=== PATIENT | female | born 1995 | race Caucasian/White ===

== ENCOUNTER 2023-06-03 05:14 | Emergency (ER) | payer OTHER, SELFPAY ==
--- NOTE | ~2023-06-03 | US_ITS ---
US abdomen limited INDICATION: Right upper quadrant pain. History of gallstones. PROCEDURE: Realtime right upper abdominal ultrasound. COMPARISON: No prior studies for comparison. FINDINGS: The pancreas is normal without focal mass or pancreatic ductal dilation. Liver echotexture is normal without focal mass or intrahepatic biliary dilatation. There is normal directional flow i n the portal vein. There are gallstones. Mild gallbladder wall thickening. Common bile duct measures 4.8 mm. No sonogr aphic Bourgeois's sign. IMPRESSION: 1: Cholelithiasis with mild gallbladder wall thickening. Consider cholecystitis in the appropriate cl inical setting. Reviewed, dictated and finalized at location L. IMPRESSION: 1: Cholelithiasis with mild gallbladder wall thickening. Consider cholecystitis in the appropriate clinical setting.
[2023-06-03 05:15] VITALS: BP 130/89; PULSE 85; RESP 16; TEMP 36.4; O2SAT 100
[2023-06-03 06:15] LABS: Basophils Absolute Auto 0.1 K/mm3 (0.0-0.1); Basophils Percent Auto 0.6 % (0.2-1.2); Eosinophils Absolute Auto 0.1 K/mm3 (0-0.3); Eosinophils Percent Auto 0.7 % (0-4.4); Hematocrit 44.9 % (37.0-47.0); Hemoglobin 14.2 g/dL (12.0-15.0); Immature Granulocyte Absolute 0.04 K/mm3 (0.00-0.031); Immature Granulocyte Percent A 0.4 % (0-0.5); Lymphocytes Absolute Auto 2.06 K/mm3 (0.9-3.2); Lymphocytes Percent Auto 19.9 % (18.3-44.2); Mean Corpuscular HGB Conc 31.6 g/dl (32-36); Mean Corpuscular Hemoglobin 26.7 pg (26-34); Mean Corpuscular Volume 84.6 fl (80-100); Mean Platelet Volume 11.7 fl (7.4-10.4); Monocytes Absolute Auto 0.6 K/mm3 (0.1-0.6); Monocytes Percent Auto 6.2 % (2.6-8.5); Neutrophils Absolute Auto 7.5 K/mm3 (1.3-6.7); Neutrophils Percent Auto 72.2 % (45.5-73.1); Platelet Count Result 410 k/mm3 (150-375); Red Blood Count 5.31 M/mm3 (4.2-5.4); Red Cell Distribution Width 14.5 % (11.5-14.5); White Blood Count 10.3 K/mm3 (4.5-10.0)
[2023-06-03 06:17] VITALS: BP 119/74; O2SAT 100
[2023-06-03 06:18] VITALS: PULSE 65; RESP 18; O2SAT 100
[2023-06-03 06:18] LABS: Appearance Urine Turbid (Clear); Bacteria Urine 4+ /hpf; Bilirubin Urine Negative (Negative); Blood Urine 1+ (Negative); Color Urine Yellow (Yellow); Glucose Urine UA Negative (Negative); Ketones Urine Negative (Negative); Leukocyte Esterase Ur Negative LEU/UL (Negative); Nitrate Urine Positive (Negative); Non Pathogenic Casts 0-2; Protein Urine Negative (Negative); Specific Grav Ur 1.023 (1.001-1.035); Squamous Epithelial Cell Urine None seen /hpf (Few); Urobilinogen Urine 0.2 mg/dL (<2.0); WBC Urine 0-5 /hpf
[2023-06-03 06:41] LABS: Add Urine Microscopic? YES
--- NOTE | 2023-06-03 07:04 | ED.ABDPAIN ---
HPI - Abdominal Pain General Chief Complaint: Abdominal Pain Stated Complaint: URQ abd pain, N/V Time Seen by Provider: 06/03/23 06:56 History of Present Illness HPI narrative: Pt with h/o gallstones seen incidentally on prior US p/w n/v and RUQ since last night; she had had homemade pizza at 5pm and pain started around 7p w/ lowgrade chills. Related Data Home Medications Medication Instructions Recorded Confirmed No Home Medications 07/01/19 07/01/19 Allergies Allergy/AdvReac Type Severity Reaction Status Date / Time No Known Allergies Allergy Unknown Unverified 06/03/23 12:20 Review of Systems Review of Systems: CONST: Low-grade fevers/chills HEENT: No sore throat C/V: No chest pain RESP: No cough GI: Reports abdominal pain, nausea, vomiting : No dysuria. M/S: No joint pain. SKIN: No rash. NEURO: [No headache or focal numbness or weakness] PSYCH: [No depression] [facility] Past Medical History Medical History (Updated 06/03/23 @ 12:20 by Katelyn Bowen) Anxiety Social History Social History (System 06/03/23 @ 12:20 by Katelyn Bowen) Smoking status: Never smoker Gender identity (if verbalized by the patient): Female Exam Narrative: EXAMINATION OF ORGAN SYSTEMS/BODY AREAS: Constitutional: Vital signs per nursing GENERAL:[No acute distress, non-toxic appearing.] HEAD: Normal with no signs of head trauma. EYES: EOMI, conjunctiva normal ENT: Hearing grossly intact LUNGS: Nonlabored breathing. HEART: [Regular rate and rhythm] ABD: [Soft], [tender to palpation] RUQ; no RLQ tenderness EXT: Normal range of motion SKIN: [No rashes or lesions.] NEURO: [Alert and oriented x 3. No gross focal sensory or strength deficits.] PSYCH: Normal affect Course Vital Signs Vital signs: Vital Signs Temperature 97.6 F 06/03/23 05:15 Pulse Rate 85 06/03/23 05:15 Respiratory Rate 16 06/03/23 05:15 Blood Pressure 130/89 06/03/23 05:15 Pulse Oximetry 100 06/03/23 05:15 Oxygen Delivery Room Air 06/03/23 05:15 Temperature 97.6 F 06/03/23 05:15 Pulse Rate 62 06/03/23 09:33 Respiratory Rate 16 06/03/23 09:33 Blood Pressure 122/72 06/03/23 09:33 Pulse Oximetry 100 06/03/23 09:33 Oxygen Delivery Room Air 06/03/23 05:15 MDM - Abdominal Pain MDM Narrative Medical decision making narrative: Electronic medical record was reviewed. Patient presented to the ED with complaint of [abdominal pain and vomiting]. Vitals [were within acceptable limits]. Physical exam revealed [tenderness to palpation in RUQ]. Based on the patient's history and physical exam, my differential includes but is not limited to [gastritis, gastroenteritis, cholecystitis, pancreatitis, doubt appendicitis w/o RLQ pain]. [IV access was established by nursing staff. Patient was given zofran, famotidine, morphine]. CBC, BMP, lipase, LFTs, bilirubin and alk phos were obtained. Labs were pertinent for minimally elevated WBC, normal LFTs, bili. Right quadrant ultrasound showing cholelithiasis, with possible thickened wall, no definitive cholecystitis. On reevaluation, the patient states that they are feeling much better. There were no witnessed episodes of vomiting in the emergency department. They are not complaining of any new abdominal pain. Repeat examination did not show any significant guarding or rebound. No new tenderness. Case discussed with Dr. Johnston, general surgeon on-call, who recommended starting her on ciprofloxacin and seeing him in the clinic in the next 2 days. Plan discussed with the patient was agreeable to it. The patient was given strict return precautions, if they are to develop any worsening abdominal pain, vomiting, fevers, they are to return to the emergency department immediately. Patient verbally acknowledges understanding these directions. [The patient was informed of the above diagnostic test findings.] No further workup is necessary at this time. They will be discharged home [wi
[2023-06-03 07:07] LABS: Alanine Aminotransferase 29 U/L (6-35); Albumin Level 4.2 g/dL (3.5-5.1); Alkaline Phosphatase 65 U/L (38-126); Anion Gap 7 mmol/L (8-16); Aspartate Amino Transferase 27 U/L (14-36); Bilirubin,Total 0.4 mg/dL (0.2-1.3); Blood Urea Nitrogen 13 mg/dL (7-17); Calcium 9.3 mg/dL (8.4-10.2); Carbon Dioxide 24 mmol/L (22-30); Chloride 105 mmol/L (98-107); Estimated CRCL calculation 99 ml/min; Estimated Glomerular Filt Rate > 60; Glucose 105 mg/dL (65-110); Lipase 203 U/L (23-300); Potassium 3.6 mmol/L (3.4-5.0); Sodium 136 mmol/L (137-145)
[2023-06-03] MEDS: ONDANSETRON INJ 4 MG/2 ML VIAL IV PUSH (07:07)
[2023-06-03] MEDS: FAMOTIDINE 20 MG/2 ML VIAL IV PUSH (07:07)
[2023-06-03] MEDS: MORPHINE SULFATE (*CRX) 4 MG/ML INJ IV PUSH (07:07)
[2023-06-03 08:01] VITALS: BP 117/79; PULSE 74; RESP 16; O2SAT 100
[2023-06-03] MEDS: CIPROFLOXACIN 500 MG TAB PO (09:31)
[2023-06-03 09:33] VITALS: BP 122/72; PULSE 62; RESP 16; O2SAT 100
== END 2023-06-03 09:38 | disposition home or self-care (01) ==
PROVIDERS: Student in an Organized Health Care Education/Training Program; Emergency Provider Emergency Medicine
DX: K80.20 Calculus of gallbladder without cholecystitis without obstruction (principal)
CPT/HCPCS: 36415; 76705; 80053; 81001; 81025; 83690; 85025; 96374; 96375; 99284; A9270; J2270; J2405

== ENCOUNTER 2023-06-09 08:04 | Outpatient (CLI) | payer OTHER, SELFPAY ==
--- NOTE | 2023-06-09 08:00 | ECG_ITS ---
Measurements Intervals [place] Rate: 94 P: 82 [place]: 145 QRS: 68 QRSD: 90 T: 52 QT: 339 QTc: 424 Interpretive Statements SINUS RHYTHM POSSIBLE LEFT ATRIAL ENLARGEMENT BASELINE ARTIFACT- I, II, III, AVR, AVL, AVF, V1-V2 BORDERLINE ECG NO PREVIOUS ECG AVAILABLE FOR COMPARISON Electronically Signed On 06-09-2023 8:40:44 CDT by Geovani Madden D.O.
[2023-06-09 08:50] LABS: Alanine Aminotransferase 31 U/L (6-35); Albumin Level 4.5 g/dL (3.5-5.1); Alkaline Phosphatase 62 U/L (38-126); Amylase 62 U/L (30-110); Aspartate Amino Transferase 26 U/L (14-36); Bilirubin,Total 0.6 mg/dL (0.2-1.3); Lipase 63 U/L (23-300)
== END 2023-06-09 08:05 | disposition home or self-care (01) ==
LOC: ANHSURGERY 08:09
PROVIDERS: Visit Provider Surgery
DX: K80.10 Calculus of gallbladder with chronic cholecystitis without obstruction (principal); I10 Essential (primary) hypertension; Z01.818 Encounter for other preprocedural examination
CPT/HCPCS: 36415; 80076; 82150; 83690; 86850; 86900; 86901; 93005

== ENCOUNTER 2023-06-10 01:42 | Day surgery (SDC) | payer OTHER, SELFPAY ==
[2023-06-07 13:19] VITALS: BMI 22.9
--- NOTE | 2023-06-07 13:24 | PC.NURSE ---
Report to the Outpatient Waiting Room, entrance under the green pavilion located off [facility], at time 10:00 on date 06/10/23. Planned Procedure Time: 12:00. Time changes happen often and if your time is changed the preop area will call you the afternoon before. - You and your visitor will be asked to self-screen and do not enter if you have any COVID symptoms. - A mask is optional within the hospital at this time. Patients may have clear liquids (water, carbonated beverages, clear teas, apple juice) until 3 hours prior to surgery (9:00) with a maximum of 20 ounces. - No food from midnight until time of surgery Take the following medications with a SIP of water the morning of surgery: BUPROPION, CIPRO, CONTROL DO NOT STOP ANY OF YOUR OTHER PRESCRIPTION MEDICATIONS PRIOR TO SURGERY ?EXCEPT THE FOLLOWING Medications to discontinue per physician: N/A Date to take last dose: N/A Please no make-up, nail arabic, hairspray, perfume, deodorant, or body powder the day of surgery. No jewelry (including any body piercings) or valuables the day of surgery, leave them at home. Please take a shower or bath the night before, or the morning of, surgery with an antibacterial soap. Wear comfortable, loose fitting clothing. - Jewelry must be removed prior to entering the operating room. Rings and piercings that are not removed may be cut off. - The hospital will not accept responsibility for valuables. - Please leave all valuables, including medications, at home the day of surgery. If you are going home after surgery, a licensed rolloff truck driver must drive you home. - NO public transportation without another adult if you receive anesthesia. - We recommend that an adult stay with you for 24 hours following discharge. - We also recommend that you do not drive, make important decision, drink alcoholic beverages, or take any drugs that were not prescribed by your health care provider for at least 24 hours after your discharge time. Follow any additional instructions given to you from your surgeon. If you or anyone in your household have experienced Covid symptoms in the past week, please notify your surgeon or the nurse liaison at the phone number below for possible testing. Telephone instructions given to PT - DORENE Schaffer and asked if any additional questions and then verbalized understanding. Patient advised to call surgeon office or pre surgery nurse liaison [phone] if any additional questions.
[2023-06-10] VITALS (13 sets, daily range): BP systolic 114–140; BP diastolic 59–88; PULSE 81–99; RESP 15–19; TEMP 36.4–37.1; O2SAT 100
--- NOTE | ~2023-06-10 | XR_ITS ---
EXAMINATION: XR chest 1V portable 06/10/2023 15:36 INDICATION: Dyspnea PROCEDURE: AP portable chest COMPARISON: 11/24/2013 FINDINGS: The lungs are clear. The cardiomediastinal silhouette is within normal limits. There are no pleural effusions. There is no pneumothorax suspected. There is scoliosis. IMPRESSION: 1: NO ACUTE CARDIOPULMONARY DISEASE. Reviewed, dictated and finalized at location A.
[2023-06-10] MEDS: LACTATED RINGERS 1,000 ML 30 ML IV CONT ×2 (10:30→14:16)
[2023-06-10] MEDS: ACETAMINOPHEN 500 MG TABLET 1000 MG PO (11:45)
--- NOTE | 2023-06-10 11:49 | P.PNAN_ITS ---
Anes - Initial Pre Proc Eval Procedure: Operation Date: 06/10/23 12:00 Proposed Procedures p Laparoscopic Cholecystectomy - Nicholas Johnston MD Date/Time: 06/10/23 11:49 Surgeon: Nicholas Johnston MD Pre Op Diagnosis: Chr Cholecystitis with Stones Patient Data Age: 27 Gender: F Height: 1.78 m Weight: 72.6 kg Allergies Allergy/AdvReac Type Severity Reaction Status Date / Time No Known Allergies Allergy Unknown Verified 06/07/23 13:18 Home Medications Medication Instructions Recorded Confirmed Type ciprofloxacin HCl 500 mg tablet 500 mg PO Q12H #14 tabs 06/03/23 06/09/23 Rx famotidine 20 mg tablet 20 mg PO DAILY #30 tabs 06/03/23 06/09/23 Rx bupropion HCl 300 mg 24 hr tablet, 300 mg PO QAM 06/07/23 06/09/23 History extended release lisinopril 5 mg tablet 5 mg PO DAILY 06/07/23 06/09/23 History norethindrone 1 mg-ethinyl 1 tablet PO DAILY 06/07/23 06/09/23 History estradiol 10 mcg (24)-iron 10 mcg(2) tablet (Lo Loestrin Fe) Patient hx anesthesia problems: post op nausea/vomiting (scopolamine patch appli ed) Family hx anesthesia problems: none Results Review: All pre-operative results and documents have been reviewed as part of the pre-operative evaluation. [facility] Past Medical History Medical History (Updated 06/07/23 @ 11:55 by Sadia Lynch) Anxiety Depression Hypertension Kidney stone Surgical History Surgical History History of oophorectomy Social History Social History Smoking status: Never smoker Alcohol intake: current Alcohol use details: RARE Substance use: current Substance use type: marijuana Living arrangements: with family Gender identity (if verbalized by the patient): Female Spiritual care concerns: No Anes - Eval Final PreProcedure Day of Procedure 06/10/23 11:49 Patient weight: normal Heart: regular rate and rhythm Lungs: clear to auscultation Airway: Mallampati scale class II Neurological: alert and oriented Last oral intake: >/= 8 hours ASA classification: II Emergent: no Anesthetic plan: proceed Anesthesia type and monitoring: general ETT and standard monitoring Results Review: All pre-operative results and documents have been reviewed as part of the pre- operative evaluation. Informed Consent: The patient's anesthetic plan and its attendant risks and benefits were discussed with the patient/family/POA. Questions were solicited and answers provided to the satisfaction of the patient/family/POA.
[2023-06-10] MEDS: KETOROLAC 15 MG/ML VIAL (*BKC) IV PUSH ×2 (11:50→13:19)
[2023-06-10] MEDS: SCOPOLAMINE 1.5 MG PATCH TRANSDERM (11:50)
--- NOTE | 2023-06-10 11:58 | WPDHPUPDATE1 ---
History and Physical Update Update Date/Time: 06/10/23 11:58 History and Physical has been reviewed, including an updated exam of the patient. There are NO changes in the patient's condition. Risks, benefits, and alternatives have been discussed and questions answered. Patient agrees to proceed with procedure.
[2023-06-10] MEDS: ceFAZolin 2 GM/D5W 50 ML 2 GM/50 ML BAG IVPB (12:11)
[2023-06-10] MEDS: BUPIVACAINE/EPINEPHRINE 0.5% 50 ML VIAL INFILTRATE (12:45)
--- NOTE | 2023-06-10 13:32 | W.PM.PROC2 ---
Procedure Note - Detailed Date of Procedure 06/10/23 Pre-op Diagnosis Chr Cholecystitis with Stones Post-op Diagnosis Same Procedure Performed Laparoscopic cholecystectomy Surgeon Nicholas Johnston MD Iuss Analyst Kulwant BALDWIN Anesthesia General and Local Indications Patient is a 27-year-old woman who has had postprandial right upper quadrant abdominal pain that has been very severe. He usually comes after fatty foods and is accompanied by nausea and vomiting. She was recently in the emergency room for this. An ultrasound showed gallstones and a thickened gallbladder wall consistent with cholecystitis. She was seen in the office and is taken to surgery now for laparoscopic cholecystectomy. Her liver function tests were normal Findings She had a very long gallbladder that was packed with stones. Several of the stones had moved into the proximal cystic duct and 1 was impacted in the cystic duct. There was no liver abnormalities and no biliary dilatation. No other significant findings were noted. Description of Procedure Patient was taken to surgery and induced into general anesthesia. The abdomen is prepped and draped. Initial epigastric trocar was plan for the epigastric area. Local was infiltrated and an incision was made. The varies needle was introduced and insufflation of the abdomen was carried out. After adequate distention, a 5 mm applied Medical optical trocar was placed. This showed intraperitoneal location without any sign of injury. We then used this trocar and placed a right-sided 5 mm port in the lower portion of the abdomen. The camera was switched over to this port. We then exchanged the 5 mm epigastric port for a 10 11. Two additional 5 mm ports were placed, 1 was on the right side of the abdomen the other was just to the left of the umbilicus. Patient was then placed in Trendelenburg. The gallbladder was seen easily. It was completely full of stones. Fortunately it was not so distended with stones that we could not grasp it. The gallbladder was retracted anterosuperiorly. Gallbladder appeared very long. We elevated the infundibulum and dissected in the cholecystohepatic triangle. A couple of branches of the cystic artery were identified. One went around the cystic duct from left to right. For we dissected both of these branches and dissected it from the cystic duct. We then started dissecting under the gallbladder and dissected entirely through from the medial aspect through the lateral aspect of the peritoneal attachments on the undersurface of the gallbladder. It appeared that the infundibulum of the gallbladder extended more than was initially appreciated. We dissected from the proximal cystic duct down towards the common bile duct. Eventually we found the junction of the cystic duct and common hepatic duct. The right hepatic artery was seen as well. I then carefully dissected out the cystic duct and cystic artery in this position. I then further dissected the gallbladder off the liver so that at least half of the gallbladder was dissected away from the liver and critical view was achieved. The cystic duct had a large stone impacted in the proximal to mid cystic duct. The very distal cystic duct however was small in more of a normal size. I securely clipped and divided the cystic duct. I securely clipped and divided the cystic artery. We then went back in carefully divided the peritoneal attachments to the gallbladder and also dissected the gallbladder from the gallbladder fossa. Moving progressively more towards the fundus of the gallbladder eventually, the gallbladder was completely freed from the liver. Gallbladder was placed in an Endo-Catch bag and then retrieved from the 05/19 epigastric trocar site. I did have to enlarge the skin and some of the fascia to allow the gallbladder to be extricated from this epigastric trocar site as it was thickened and had many stones within it. Once this was accomplished, t
[2023-06-10] MEDS: fentaNYL CITRATE INJ (*CRX) 100 MCG/2 ML VIAL 25 MCG IV PUSH ×4 (13:57→14:22)
[2023-06-10] MEDS: oxyCODONE HCL (*CRX) 5 MG TAB IR PO (15:04)
[2023-06-10] MEDS: HYDROmorphone HCL INJ (*CRX) 1 MG/ML SYR IV PUSH (15:36)
[2023-06-10] MEDS: diazePAM INJ (*CRX) 10 MG/2 ML SYRINGE 2.5 MG IV PUSH (16:01)
--- NOTE | 2023-06-10 16:42 | SUR.PHASEII ---
1611: Spoke w/ Dr. Johnston and told him that the medication did not help any. Patient was still crying and having a lot of pain. Dr. Johnston will put in admission orders.
--- NOTE | 2023-06-10 17:41 | ADMGEN ---
This patient, Yue Vogt, was admitted to Medical Room 254-01. Patient/family oriented to hospital policies and general routines including ID bracelet, bed and alarms, visiting hours, pain management, procedures, bathroom and other care routines, personal items, smoking policy, room service/diet, and visiting hours. Information on how to activate the Rapid Response Team has been discussed. Patient/Family are encouraged to report perceived risks to care and to ask questions if they do not understand what they are told or what they should do.
[2023-06-10] MEDS: ONDANSETRON INJ 4 MG/2 ML VIAL IV PUSH ×2 (17:53→21:47)
[2023-06-10] MEDS: MORPHINE SULFATE (*CRX) 2 MG/ML INJ IV PUSH (17:53)
[2023-06-10] MEDS: LACTATED RINGERS 1,000 ML 80 ML IV CONT (17:54)
[2023-06-10] MEDS: HYDROcodone/acetaminophen (*CRX) 5-325 MG TABLET 1 TAB PO (21:46)
[2023-06-10] MEDS: ENOXAPARIN 30 MG/0.3 ML SYRINGE SUB-Q (21:47)
[2023-06-11 00:32] VITALS: BP 114/60; PULSE 82; RESP 16; TEMP 36.5; O2SAT 99
[2023-06-11 06:07] LABS: Hematocrit 35.6 % (37.0-47.0); Hemoglobin 11.6 g/dL (12.0-15.0); Mean Corpuscular HGB Conc 32.6 g/dl (32-36); Mean Corpuscular Hemoglobin 27.2 pg (26-34); Mean Corpuscular Volume 83.6 fl (80-100); Mean Platelet Volume 11.5 fl (7.4-10.4); Platelet Count Result 334 k/mm3 (150-375); Red Blood Count 4.26 M/mm3 (4.2-5.4); Red Cell Distribution Width 13.7 % (11.5-14.5)
[2023-06-11 06:24] LABS: Alanine Aminotransferase 65 U/L (6-35); Albumin Level 3.4 g/dL (3.5-5.1); Alkaline Phosphatase 53 U/L (38-126); Anion Gap 5 mmol/L (8-16); Aspartate Amino Transferase 63 U/L (14-36); Bilirubin,Total 0.6 mg/dL (0.2-1.3); Blood Urea Nitrogen 9 mg/dL (7-17); Calcium 8.3 mg/dL (8.4-10.2); Carbon Dioxide 24 mmol/L (22-30); Chloride 104 mmol/L (98-107); Estimated CRCL calculation 89 ml/min; Estimated Glomerular Filt Rate > 60; Glucose 95 mg/dL (65-110); Potassium 3.6 mmol/L (3.4-5.0); Sodium 133 mmol/L (137-145)
[2023-06-11] MEDS: LACTATED RINGERS 1,000 ML 80 ML IV CONT (06:36)
[2023-06-11 06:44] VITALS: BP 112/59; PULSE 98; RESP 16; TEMP 36.6; O2SAT 100
[2023-06-11 09:20] VITALS: BP 119/63
[2023-06-11] MEDS: lisinopriL 5 MG TABLET PO (09:21)
[2023-06-11] MEDS: buPROPion HCL XL (24 HR) 150 MG TABCR 300 MG PO (09:21)
[2023-06-11] MEDS: FAMOTIDINE 20 MG TABLET PO (09:21)
[2023-06-11] MEDS: ENOXAPARIN 30 MG/0.3 ML SYRINGE SUB-Q (09:21)
[2023-06-11] MEDS: HYDROcodone/acetaminophen (*CRX) 10-325 MG TABLET 1 TAB PO (09:22)
--- NOTE | 2023-06-11 10:03 | WPDANESPN ---
Anes - Prog Note Post-Op Date/Time: 06/11/23 10:03 Cardiovascular status: normal Respiratory status: normal Airway patency: baseline Mental status: baseline Post-Op hydration status: normal Vital Signs: Last Vital Signs Temp 36.6 C 06/11/23 06:44 Pulse 98 06/11/23 06:44 Resp 16 06/11/23 06:44 BP 119/63 06/11/23 09:20 Pulse Ox 100 06/11/23 06:44 O2 Del Method Room Air 06/10/23 20:00 O2 Flow Rate 6 06/10/23 13:45 Pain Score (VAS): 10/16 I/O: Intake & Output 06/10/23 06/11/23 06/11/23 23:59 07:59 15:59 Intake Total 0 1400 120 Balance 0 1400 120 Laboratory Tests 06/11/23 05:35 06/11/23 05:35 06/11/23 05:35 WBC 10.0 RBC 4.26 Hgb 11.6 L Hct 35.6 L MCV 83.6 MCH 27.2 MCHC 32.6 RDW 13.7 Plt Count 334 MPV 11.5 H Sodium 133 L Potassium 3.6 Chloride 104 Carbon Dioxide 24 Anion Gap 5 L BUN 9 Creatinine 0.90 Estim Creat Clear Calc 89 Estimated GFR > 60 Glucose 95 Calcium 8.3 L Total Bilirubin 0.6 AST 63 H ALT 65 H Alkaline Phosphatase 53 Total Protein 6.0 L Albumin 3.4 L Post-procedural complaints: none Patient Feedback: Patient satisfied with anesthetic care.
[2023-06-11 11:05] VITALS: BP 115/65; PULSE 56; RESP 14; TEMP 36.7; O2SAT 100
--- NOTE | 2023-06-11 11:39 | PM.DS ---
DS: Admitting Diagnosis Discharge Date 06/11/2023 Admitting Diagnosis Chronic cholecystitis, cholelithiasis DS: Discharge Diagnosis Discharge Diagnosis (1) Chronic cholecystitis with calculus: Code(s): K80.10 - Calculus of gallbladder with chronic cholecystitis without obstruction Status: Chronic Assessment and Plan: Status post laparoscopic cholecystectomy 06/10/[address] Johnston DS: Summary Hospital Course Hospital Course: Patient had uneventful laparoscopic cholecystectomy on 06/10/2023. She had quite a bit of right shoulder and right upper chest pain after surgery. She was also persistently tearful and uncomfortable. Despite numerous efforts to relieve this, she was still very uncomfortable and we felt it best to observe her overnight. Although she received some morphine last night, she has tolerated oral intake and took only 5 mg Percocet this morning. She feels much better. She is no longer having tearful emotions. She has been up walking. She is discharged today in much improved condition. Status at Discharge Functional status at discharge: independent ambulation Overall status at discharge: patient is progressing back to baseline Time Spent with Patient Time attestation: Total time spent providing and/or coordinating discharge services: Time spent: Less than 30 minutes DS: Data Data Completed and Pending Pending studies at discharge: Pending at discharge 06/10/23 12:42 Surgical [PTH] Routine Labs on day of discharge: Labs from last 24 hours 06/11/23 05:35 WBC 10.0 RBC 4.26 Hgb 11.6 L Hct 35.6 L MCV 83.6 MCH 27.2 MCHC 32.6 RDW 13.7 Plt Count 334 MPV 11.5 H Sodium 133 L Potassium 3.6 Chloride 104 Carbon Dioxide 24 Anion Gap 5 L BUN 9 Creatinine 0.90 Estim Creat Clear Calc 89 Estimated GFR > 60 Glucose 95 Calcium 8.3 L Total Bilirubin 0.6 AST 63 H ALT 65 H Alkaline Phosphatase 53 Total Protein 6.0 L Albumin 3.4 L Discharge Plan Discharge Patient Disposition: Home, Self-Care Discharge Instructions: Remove the Scopolamine patch that was placed behind your ear in 72 hours or less. Wash your hands after touching. 1. May shower the day after surgery over incisions. 2. Call office for: -Wound increasingly painful or bleeding -Vomiting -Fever of greater than 101 degrees 3. Expect some blood on dressing and old blood on skin. 4. If no bowel movement for three days, take 1 oz. (30 ml) Milk of Magnesia, if no results, take Fleets enema. 5. No heavy lifting > 15-20 pounds for 2 weeks. 6. No driving for 3 days or while taking narcotic pain medications. 7. Up walking 10-30 minutes three times per day. 8. Resume previous home medications. 9. Follow-up 10-14 days in office for wound check or as previously scheduled. 10. Oral pain medications prescription to be sent home with patient. 11. NUTRITION: Start out by drinking fluids and increase your diet as tolerated. If you experience nausea, try dry toast, crackers, and 7-UP. If nausea or vomiting persists, contact your surgeon?s office. Stand Alone Forms: General Discharge Instructions Follow-up/Referrals: Nicholas Johnston MD [Physician] - 2 Weeks Discharge Medications: New ketorolac 10 mg tablet 10 mg PO Q6H 4 Days Qty: 16 0RF oxycodone-acetaminophen [Percocet] 5-325 mg tablet 1 - 2 tablet PO Q6H PRN (Reason: pain) Qty: 15 0RF Continued lisinopril 5 mg tablet 5 mg PO DAILY bupropion HCl 300 mg tablet extended release 24 hr 300 mg PO QAM Lo Loestrin Fe 1 mg-10 mcg (24)/10 mcg (2) tablet 1 tablet PO DAILY famotidine 20 mg tablet 20 mg PO DAILY Qty: 30 0RF Discontinued ciprofloxacin HCl 500 mg tablet 500 mg PO Q12H Qty: 14 0RF
== END 2023-06-11 14:35 | disposition home or self-care (01) ==
LOC: ANHSURGERY 17:01 → ANH2MED 17:36
PROVIDERS: Visit Provider Surgery
PROC: 0FT44ZZ Resection of Gallbladder, Percutaneous Endoscopic Approach (ICD-10-PCS; CPT 47562; principal; 2023-06-10 12:00)
DX: K80.20 Calculus of gallbladder without cholecystitis without obstruction (principal); F41.9 Anxiety disorder, unspecified; F32.A Depression, unspecified; I10 Essential (primary) hypertension; F12.90 Cannabis use, unspecified, uncomplicated; Z79.3 Long term (current) use of hormonal contraceptives
CPT/HCPCS: 47562; 36415; 71045; 80053; 80076; 82150; 83690; 85027; 86850; 86900; 86901; 88304; 93005; A9270; C1713; J0690; J1100; J1170; J1650; J1885; J2250; J2270; J2405; J2704; J3010; J3360; J7120

== ENCOUNTER 2023-09-27 05:36 | Emergency (ER) | payer OTHER, BC, SELFPAY ==
--- NOTE | ~2023-09-27 | CT_ITS ---
EXAMINATION: CT abdomen pelvis w con DATE: 09/27/2023 08:35 INDICATION: Right flank pain TECHNIQUE: Computed tomography (CT) of the abdomen and pelvis was performed with 100 mL Omnipaque-350 intravenous contrast. Automated exposure control and iterative reconstruction technique were employe d. The dose-length product was 433.22 mGy-cm. COMPARISON: 04/12/13 FINDINGS: Lung bases are clear. Heart size is normal. No pericardial or pleural effusion. Cholecystectomy clips the gallbladder fossa. Liver, spleen, pancreas, bilateral adrenal glands and left kidney are normal. There is prominent thickened enhancement of the diego of the right renal pelvis and ureter extending to the bladder suggestive of ascending urinary tract infection. Homogeneous parenchymal enhancement with no region suspicious for pyelonephritis.. No urolithiasis or hydronephrosis. Bladder an antevert ed uterus are normal. Bowels including the appendix are normal. No free intraperitoneal gas or fluid. No pathologically enlarged abdominal or pelvic lymphadenopathy. Mild thoracolumbar dextrocurvature. IMPRESSION: 1. Thickened enhancing diego of the right renal pelvis and ureter consistent with ascending urinary t ract infection. Correlate with urinalysis. Reviewed, dictated and finalized at location A. [facility] RN IMPRESSION: 1. Thickened enhancing diego of the right renal pelvis and ureter consistent wi th ascending urinary tract infection. Correlate with urinalysis.
[2023-09-27 05:37] VITALS: BP 131/65; PULSE 94; RESP 16; TEMP 36.8; O2SAT 100
--- NOTE | 2023-09-27 06:51 | PC.NURSE ---
This RN attempted to start IV on pt and obtain labs. While starting IV and obtaining blood pt started to curse and cry and asked this RN to remove catheter. Pts RN made aware.
[2023-09-27 07:16] VITALS: BP 130/86; PULSE 86; RESP 14; O2SAT 100
[2023-09-27] MEDS: ONDANSETRON INJ 4 MG/2 ML VIAL IV PUSH (07:57)
[2023-09-27] MEDS: MORPHINE SULFATE (*CRX) 4 MG/ML INJ IV PUSH (07:57)
[2023-09-27 08:06] LABS: Basophils Absolute Auto 0.1 K/mm3 (0.0-0.1); Basophils Percent Auto 0.4 % (0.2-1.2); Eosinophils Absolute Auto 0.1 K/mm3 (0-0.3); Eosinophils Percent Auto 0.4 % (0-4.4); Hematocrit 43.7 % (37.0-47.0); Hemoglobin 13.8 g/dL (12.0-15.0); Immature Granulocyte Absolute 0.07 K/mm3 (0.00-0.031); Immature Granulocyte Percent A 0.4 % (0-0.5); Lymphocytes Absolute Auto 2.06 K/mm3 (0.9-3.2); Mean Corpuscular HGB Conc 31.6 g/dl (32-36); Mean Corpuscular Hemoglobin 26.7 pg (26-34); Mean Corpuscular Volume 84.7 fl (80-100); Mean Platelet Volume 11.1 fl (7.4-10.4); Monocytes Absolute Auto 0.9 K/mm3 (0.1-0.6); Monocytes Percent Auto 5.5 % (2.6-8.5); Neutrophils Absolute Auto 12.7 K/mm3 (1.3-6.7); Neutrophils Percent Auto 80.3 % (45.5-73.1); Platelet Count Result 445 k/mm3 (150-375); Red Blood Count 5.16 M/mm3 (4.2-5.4); Red Cell Distribution Width 14.5 % (11.5-14.5); White Blood Count 15.8 K/mm3 (4.5-10.0)
[2023-09-27 08:15] LABS: Alanine Aminotransferase 28 U/L (6-35); Albumin Level 4.5 g/dL (3.5-5.1); Alkaline Phosphatase 74 U/L (38-126); Anion Gap 7 mmol/L (8-16); Aspartate Amino Transferase 31 U/L (14-36); Bilirubin,Total 0.5 mg/dL (0.2-1.3); Blood Urea Nitrogen 12 mg/dL (7-17); Calcium 9.2 mg/dL (8.4-10.2); Carbon Dioxide 24 mmol/L (22-30); Chloride 105 mmol/L (98-107); Estimated CRCL calculation 99 ml/min; Estimated Glomerular Filt Rate > 60; Glucose 99 mg/dL (65-110); Lipase 69 U/L (23-300); Potassium 3.7 mmol/L (3.4-5.0); Sodium 136 mmol/L (137-145)
[2023-09-27 08:19] LABS: Appearance Urine Clear (Clear); Bacteria Urine 2+ /hpf; Bilirubin Urine Negative (Negative); Blood Urine 1+ (Negative); Color Urine Yellow (Yellow); Glucose Urine UA Negative (Negative); Ketones Urine Negative (Negative); Leukocyte Esterase Ur 1+ LEU/UL (Negative); Need Manual Microscopic Reviewed; Nitrate Urine Negative (Negative); Non Pathogenic Casts 0-2; Protein Urine Trace mg/dL (Negative); RBC Urine 0-2 /hpf (0-2); Specific Grav Ur 1.004 (1.001-1.035); Squamous Epithelial Cell Urine None seen /hpf (Few); Urobilinogen Urine 0.2 mg/dL (<2.0); WBC Urine 21-50 /hpf; pH Urine 6.5 (5.0-9.0)
[2023-09-27 08:23] LABS: Add Urine Microscopic? YES
[2023-09-27 09:01] VITALS: BP 125/80; PULSE 83; RESP 14; O2SAT 100
[2023-09-27] MEDS: KETOROLAC 30 MG/ML VIAL (*BKC) IV PUSH (09:06)
--- NOTE | 2023-09-27 09:55 | ED.ABDPAIN ---
HPI - Abdominal Pain General Chief Complaint: Abdominal Pain Stated Complaint: RLQ abd pain/back pain Time Seen by Provider: 09/27/23 07:02 History of Present Illness HPI narrative: patient is a 28-year-old female who presents ER with right-sided flank pain. Sudden onset early this morning. Radiates into the abdomen. Recently treated for UTI with Macrobid. She is not currently having any burning urination or frequent urination. Denies fevers or chills or sweats. No chest pain or chest pressure. No aggravating or alleviating factors. No trauma to the back. Related Data Home Medications Medication Instructions Recorded Confirmed bupropion HCl 300 mg 24 hr tablet, 300 mg PO QAM 06/07/23 06/21/23 extended release lisinopril 5 mg tablet 5 mg PO DAILY 06/07/23 06/21/23 norethindrone 1 mg-ethinyl 1 tablet PO DAILY 06/07/23 06/21/23 estradiol 10 mcg (24)-iron 10 mcg(2) tablet (Lo Loestrin Fe) Allergies Allergy/AdvReac Type Severity Reaction Status Date / Time No Known Allergies Allergy Unknown Verified 09/27/23 07:17 Review of Systems Review of Systems: All systems reviewed & are unremarkable except as noted in HPI and below Constitutional: Constitutional: Reports no additional constitutional complaints ENT: Reports system reviewed and no additional complaints, except as documented Cardiovascular: Cardiovascular: Reports no additional cardiovascular complaints Gastrointestinal: Gastrointestinal: Reports abdominal pain, Denies diarrhea, Reports nausea and Denies vomiting Genitourinary: Genitourinary: Denies hematuria, Denies nocturia, Denies dysuria and Reports flank pain [facility] Past Medical History Medical History (Updated 09/27/23 @ 09:58 by Rohith Huffman MD) Anxiety Depression Hypertension Kidney stone Surgical History Surgical History History of oophorectomy Social History Social History Smoking status: Never smoker Alcohol intake: current Drinks per week: 1 Alcohol use details: RARE Substance use: current Substance use type: marijuana Lack of Transportation: No Lack of Food: Never True Current Housing: I Have Housing Concerned About Future Housing: No Difficulty Paying Gas/Electric Bills: No Difficulty Paying for Meds: No Currently Unemployed: No Education: Bachelor's Degree Difficulty w/ Childcare or Family Care: No Living arrangements: with family Gender identity (if verbalized by the patient): Female Spiritual care concerns: No Exam Narrative: GENERAL: Uncomfortable-appearing, well-nourished, and in no acute distress. HEAD: Normocephalic, atraumatic. ENT: Mucous membranes moist. CHEST: Clear to auscultation. No respiratory distress. HEART: Regular rate and rhythm. Normal peripheral pulses. ABDOMEN: Soft, nontender, nondistended. No CVA tenderness. EXTREMITIES: Normal range of motion. No edema. SKIN: Warm, dry, no rash. NEURO: Alert and oriented x3. PSYCH: Normal mood and affect. Course Course Emergency Course: Patient's pain improved with Toradol as opposed to morphine. She has been given Zofran as well. Imaging without evidence of ascending UTI. Patient has mild leukocytosis. Due to patient's comfort unlike nausea this time patient felt to be amenable to outpatient treatment. Will place on cefpodoxime. Will provide pain and nausea control. Urine does appear infected and will be sent for culture. Vital Signs Vital signs: Vital Signs Temperature 98.2 F 09/27/23 05:37 Pulse Rate 94 09/27/23 05:37 Respiratory Rate 16 09/27/23 05:37 Blood Pressure 131/65 09/27/23 05:37 Pulse Oximetry 100 09/27/23 05:37 Oxygen Delivery Room Air 09/27/23 05:37 Temperature 98.2 F 09/27/23 05:37 Pulse Rate 83 09/27/23 09:01 Respiratory Rate 14 09/27/23 09:01 Blood Pressure 125/80 09/27/23
[2023-09-27 10:16] VITALS: BP 116/79; PULSE 72; RESP 15; TEMP 36.7; O2SAT 100
== END 2023-09-27 10:18 | disposition home or self-care (01) ==
PROVIDERS: Emergency Provider Emergency Medicine
DX: N12 Tubulo-interstitial nephritis, not specified as acute or chronic (principal); I10 Essential (primary) hypertension; F41.9 Anxiety disorder, unspecified; F32.A Depression, unspecified; Z87.442 Personal history of urinary calculi
CPT/HCPCS: 36415; 74177; 80053; 81001; 81025; 83690; 85025; 87077; 87086; 87186; 96374; 96375; 99284; J1885; J2270; J2405; Q9967